=== PATIENT | female | born 1965 | race Caucasian/White ===

== ENCOUNTER 2024-12-24 04:56 | Observation (INO) ==
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
[2024-12-24] MEDS: KETOROLAC TROMETHAMINE 60 MG/2 ML VIAL IM STA (05:51)
[2024-12-24] MEDS: ACETAMINOPHEN 500 MG TAB PO STA (05:51)
[2024-12-24] MEDS: dexAMETHasone**PF** 10 MG/ML VIAL IM ONE (05:51)
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
--- OUTSIDE RECORDS SUMMARY | 2024-12-24 06:01 | External Medical Summary | Summary of Care ---
Author Name Unknown Organization [facility] Address [address] [place] [address] Phone [phone] Care Team Providers Care Chop Saw Operator Name Role Phone Atif Lubin MD Primary Care Provider [phone] Reason for Visit * Reason Comments Outpatient Testing Encounter Details Date Type Department Care Team (Late st Contact Info) Description 08/11/2024 8:50 AM EDT Laboratory Laboratory, [facility] [address] [place] [address] [facility] [address] [place] [address] HTN, goal below 130/80; Hypertension, unspecified type Allergies Active Allergy Reactions Criticality Noted Date Comments Adhesive Tape Other (Please comment) Medium 04/25/2014 "looks like a chemical burn when on my torso" documented as of this encounter (statuses as of 08/11/2024) Medications Medication Sig Dispensed Refills Start Date End Date Status Losartan Potassium 50 MG Oral Tablet (Cozaar)Indications :HTN, goal below 130/80 Take 1 Tablet by mouth in the morning. 90 Tablet 3 03/10/2024 Active Synthroid 100 MCG Oral Tablet TAKE 1 TABLET DAILY, AT LEAST 30 MINUTES PRIOR TO BREAKFAST OR OTHER MEDICATIONS 90 Tablet 3 03/10/2024 Active documented as of this encounter (statuses as of 08/11/2024) Active Problems Problem Noted Date Diagnosed Date HTN, goal below 130/80 03/10/2024 Symptomatic PVCs 08/06/2023 Obesity, Class I, BMI 30.0-34.9 (see actual BMI) 08/06/2023 Lumbar degenerative disc disease 08/05/2023 S/P complete thyroidectomy 08/05/2023 Postsurgical hypothyroidism 05/21/2015 Overview: Mass wrapped around vocal cord documented as of this encounter (statuses as of 08/11/2024) Resolved Problems Problem Noted Date Diagnosed Date Resolved Date Palpitations 03/10/2024 08/11/2024 Long QT interval 08/05/2023 08/06/2023 Lumbar herniated disc 07/23/20222022 Lateral epicondylitis of right elbow 07/23/2022 08/05/2023 Acute left-sided low back pa in with left-sided sciatica 2022 08/05/2023 Left leg weakness 2022 08/05/2023 History of 2019 novel hayes virus disease (COVID-19) 11/07/2021 01/10/2022 Overview: 11/25 s/p vaccines. Laceration of right knee 05/01/202112/2022 Supraclavicular lymphadenopathy 12/14/2019 08/05/2023 Abnormal mammogram 10/26/2015 8 Hypothyroidism 10/19/2014 08/22/2015 Thyroid nodule 07/06/2014 04/14/2019 Overview: 03/18-referred ENT for surg. 06/1777-WIQ-bypow benign -borderline #cells--referred endo. Tim 6mos There [...] disc herniation 06/09/201408/2018 Neuralgia and neuritis 06/09/201408/05 Overview: 05/17 611 MRI Tension headache 10/15/2013 08/06/2023 Abnormal mammogram 09/15/2013 6 Neck muscle spasm 07/24/2012 11/13/2017 Pain in right elbow 07/24/2012 11/13/19 18 Routine medical exam 07/30/2011 024 Overview: 06/22 cologuard WNL tim 3y 05/[address] Condon. 10/17 spot mammo WNL. Tim 1y 10/16 mammo normal tim 1 year, referred pap 2010--mammo WNL per pt. 2009 pap-WNL Allergic rhinitis 08/11/2024 documented as of this encounter (statuses as of 08/11/2024) Immunizations Name Administration Dates Next Due COVID-19 mRNA, LNP-s, No Pre serve, 2-Dose Series ([employer]) 10/07/2021,01/23/2021,12/28/2020 Seasonal Influenza Vac., MDV , IM, [...] money to get more. Never true 12/31/2022 Sex and Gender Information Value Date Recorded Sex Assigned at Female 07/15/2022 7:14 PM EDT Gender Identity Female 07/15/2022 7:14 PM EDT Sexual Orientation Straight 07/15/2022 7: 14 PM EDT Job Start Date Occupation Industry Not on file Not on file Not on file documented as of this encounter Functional Status Functional Status Response Date of Assess ment Are you deaf or do you have serious difficulty h earing? No 05/19/2015 Are you blind or do you have serious difficulty seeing, even when wearing glasses? No 05/19/2015 Do you have serious difficul ty walking or climbing stairs? (5 years old or older) No 05/19/2015 Do you have difficulty dress ing or bathing? (5 years old or older) No 05/19/2015 Because of a physical, menta l, or emotional condition, do you have difficulty doing errands alone such as visiting a doctor s office or shopping? (15 years old or older) No 05/19/20 15 Cognitive Status Response Date of Assessm ent Because of a physical, menta l, or emotional condition, do you have serious difficulty concentrating, remembering, or making decisions? (5 years old or older) No 05/19/2015 documented as of this encounter Plan of Treatment Upcoming Encounters Date Type Department Care Team (Late st Contact Info) Description 01/22/2025 2:15 PM EDT Office Visit Dermatology [facility] [address] [place] [address] Rk Canada MD [address] [place] [address] 08/13/2025 7:40 AM EDT Office Visit Family Practice [facility] [address] [facility] [place] [address] Atif Lubin MD [address] [place] [address] Pending Results Name Type Priority Associated Diagnoses Date /Time COMPREHENSIVE METABOLIC PANEL Lab Routine HTN, goal below 130/80 08/11/2024 8:30 AM EDT LIPID PANEL WITH DIRECT LDL IF TG IS HIGH Lab Routine HTN, goal below 130/80 08/11/2024 8:30 AM EDT TSH WITH FREE T4 IF INDICATED Lab Routine HTN, goal below 130/80 08/11/2024 8:30 AM EDT ALBUMIN / CREATININE RATIO, URINE Lab Routine Hypertension, unspecified type 08/11/2024 9:19 AM EDT Health Maintenance Due Date Last Done Comments HIV Screening 1981 Albumin/Creatinine Ratio 1984 Hepatitis C Screening 1984 Hepatitis B Vaccine (1 of 3 - 19+ 3-dose series) 1985 HPV/Co-Test 1996 Colonoscopy 2011 Fecal Occult Blood Test 2011 Sigmoidoscopy 2011 Depression Screening 07/23/2023 07/23/2022 DTap/Tdap Vaccines (2 - Td or Tdap) 08/19/2023 08/19/2013 COVID-19 Vaccine ( season) 2024 10/07/2021, 01/23/2021, 12/28/2020 Influenza Vaccine (FLU shot) (#1) 2024 07/23/2022, 07/16/2020, 11/06/2019, Additional history exists TSH 08/07/2024 08/07/2023, 07/05, 01/16/2021, Additional history exists GFR 11/08/2024 11/08/2023, 10/04, 07/23/2022, Additional history exists Cervical Cancer Screening 12/29/2024 Pap Smear 12/29/2024 12/29/2021, 11/04, 10/18/2016, Additional history exists Mammogram 03/20/2025 03/20/2024, 03/04, 01/16/2022, Additional history exists Cologuard 07/26/2025 07/26/2022, 07/05, 07/20/2022, Additional history exists Colorectal Cancer Screening 07/26/2025 Diabetes Screening 11/08/2026 11/08/2023, 1 12/18/2021, 07/23/2022, Additional history exists Lipid Panel 07/23/2027 07/23/2022, 10/03/2018, 07/24/2012 Zoster Vaccines Completed 11/06/2019, 04/14/2019 HPV (Gardasil) [...] Not on filedocumented as of this encounter Procedures Procedure Name Priority Date/Time Associated Diagnosis Comments CBC Routine 08/11/2024 8:30 AM EDT HTN, goal below 130/80 documented in this encounter Results * CBC (08/11/2024 8:30 AM EDT) WBC 6.07 4.00 - 10.80 K/uL 08/11/2024 8:48 AM EDT [facility] [place] [facility]10 RBC 4.69 3.85 - 5.15 M/uL 08/11/2024 8:48 AM EDT [facility] [place] 57-10 HGB 13.4 12.0 - 15.3 g/dL 08/11/2024 8:48 AM EDT [facility] [place] 57-10 HCT 41.5 36.0 - 45.2 % 08/11/2024 8:48 AM EDT [facility] [place] 57-10 MCV 88.5 81.5 - 97.5 fL 08/11/2024 8:48 AM EDT [facility] [place] 57-10 MCH 28.6 27.0 - 34.0 pg 08/11/2024 8:48 AM EDT [facility] [place] 57-10 MCHC 32.3 32.0 - 36.0 g/dL 08/11/2024 8:48 AM EDT [facility] [place] 57[facility]10 RDW 13.1 11.5 - 15.5 % 08/11/2024 8:48 AM EDT [facility] [place] 57-10 PLT 309 140 - 400 K/uL 08/11/2024 8:48 AM EDT [facility] [place] 57-10 MPV 10.3 6.6 - 11.1 fL 08/11/2024 8:48 AM EDT [facility] [place] 57-10 Blood Venous blood specimen / Unknown Venipuncture / Unknown 08/11/2024 8:30 AM EDT 08/11/2024 8:30 AM EDT Kala [facility]ALVE[facility] LAB BLOOD ORDER [facility] [place] [facility]-10 [address] [address] documented in this encounter Visit Diagnoses Diagnosis Hypertension, unspecified type documented in this encounter Care Teams Chop Saw Operator Relationship Specialty Start Date End Date Atif Lubin MD [address] [address] PCP - General Family Medicine 08/06/23 documented as of this encounter
--- OUTSIDE RECORDS SUMMARY | 2024-12-24 06:01 | External Medical Summary | Summary of Care ---
Author Name Unknown Organization [facility] Address [address] [place] [address] Phone [phone] Care Team Providers Care Lone Lead Lineman Name Role Phone Atif Lubin MD Primary Care Provider [phone] Reason for Visit * Reason Onset Date Comments Test Results 08/14/2024 Encounter Details Date Type Department Care Team (Late st Contact Info) Description 08/14/2024 Telephone Cardiology, [facility] [address] [place] [address] Jean Claude Younger DO [address] [place] [address] Test Results Allergies Active Allergy Reactions Criticality Noted Date Comments Adhesive Tape Other (Please comment) Medium 04/25/2014 "looks like a chemical burn when on my torso" documented as of this encounter (statuses as of 08/14/2024) Medications Medication Sig Dispensed Refills Start Date [...] as of this encounter (statuses as of 08/14/2024) Active Problems Problem Noted Date Diagnosed Date HTN, goal below 130/80 03/10/2024 Symptomatic PVCs 08/06/2023 Obesity, Class I, BMI 30.0-34.9 (see actual BMI) 08/06/2023 Lumbar degenerative disc disease 08/05/2023 S/P complete thyroidectomy 08/05/2023 Postsurgical hypothyroidism 05/21/2015 Overview: Mass wrapped around vocal cord documented as of this encounter (statuses as of 08/14/2024) Resolved Problems Problem Noted Date Diagnosed Date [...] 07/06/2014 04/14/2019 Overview: 03/18-referred ENT for surg. 06/1724-LTA-tktox benign -borderline #cells--referred endo. Tim 6mos There [...] as of this encounter (statuses as of 08/14/2024) Immunizations Name Administration Dates Next Due COVID-19 mRNA, LNP-s, No Pre serve, 2-Dose Series ([employer]) 10/07/2021,01/23/2021,12/28/2020 Seasonal Influenza Vac., MDV , IM, [...] No 05/19/2015 documented as of this encounter Miscellaneous Notes * Telephone Encounter - Ochoa Bravo LPN - 08/14/2024 3:30 PM EDT Sent patient a [employer] message to make aware. ----- Message from Jean Claude Younger DO sent at 08/14/2024 3:29 PM EDT ----- Elevated TSH with normal free T4. Will forward results to primary care for management of hypothyroidism. Elevated LDL. Recommend dietary improvements and participation in a regular aerobic exercise program. Normal CBC and CMP. documented in this encounter Plan of Treatment Upcoming Encounters Date Type Department Care Team (Late st Contact Info) Description 01/22/2025 2:15 PM EDT Office Visit Dermatology [facility] [address] [facility] [place] [address] Rk [place] MD [address] [facility] [place] [address] 08/13/2025 7:40 AM EDT Office Visit Family Practice [facility] [address] [place] [address] Atif Lubin MD [address] [place] [address] Health Maintenance Due Date Last Done Comments [...] Not on filedocumented as of this encounter Care Teams Lone Lead Lineman Relationship Specialty Start Date End Date Atif Lubin MD [address] [address] [address] PCP - General Family Medicine 08/06/23 documented as of this encounter
--- OUTSIDE RECORDS SUMMARY | 2024-12-24 06:02 | External Medical Summary | Summary of Care ---
Author Name Unknown Organization [facility] Address [address] [place] [address] Phone [phone] Care Team Providers Care Crib Clerk Name Role Phone Atif Lubin MD Primary Care Provider [phone] [phone] Reason for Visit * Reason Comments Acute Pt had postive covid test 07/25, tested negative on Wednesday 08/01.9 days has had earache/pain. Stated hearing is distorted. Sinus congestion and cough. No fever, no body aches/chills/fatigue. Encounter Details Date Type Department Care Team (Late st Contact Info) Description 08/03/2024 5:40 PM EDT Office Visit Family Practice [facility] [address] [place] [address] Reena Armendariz MD [address] [place] [address] Left acute otitis media* Allergies Active Allergy Reactions Criticality Noted Date Comments Adhesive Tape Other (Please comment) Medium 04/25/2014 "looks like a chemical burn when on my torso" documented as of this encounter (statuses as of 08/03/2024) Medications Medication Sig Dispensed Refills Start Date End Date Status Losartan Potassium 50 MG Oral Tablet (Cozaar)Indicati ons:HTN, goal below 130/80 Take 1 Tablet by mouth in the morning. 90 Tablet 3 4 Active Synthroid 100 MCG Oral Tablet TAKE 1 TABLET DAILY, AT LEAST 30 MINUTES PRIOR TO BREAKFAST OR OTHER MEDICATIONS 90 Tablet 3 4 Active Nirmatrelvir&Rit onavir 300/100 20 x 150 MG & 10 x 100MG Oral Tablet Therapy Pack (Paxlovid (300/100)) Take 2 pink tablets of Nirmatrelvir and 1 white tablet of Ritonavir two times a day by mouth. 30 Tablet 4 Active Additional Information Patient not taking.Reported on 08/03/2024 Amoxicillin-Pot Clavulanate 875-125 MG Oral Tablet (Augmentin)Indic ations:Left acute otitis media Take 1 Tablet by mouth in the morning and 1 Tablet before bedtime. Do all this for 7 days. 14 Tablet 4 08/10/20 24 Active Famotidine 10 MG Oral TabletIndication s:Gastroesophage al reflux disease without esophagitis Take 1 Tablet by mouth 2 times a day as needed. 08/03/20 24 Discontinued Verapamil HCl ER 120 MG Oral Tablet Extended Release (Isoptin SR)Indications:P alpitations,Symp tomatic PVCs,Prolonged QT interval,HTN, goal below 130/80 Take 1 Tablet by mouth in the morning. 30 Tablet 11 4 08/03/20 24 Discontinued(Med ication List Clean Up) LORazepam 0.5 MG Oral Tablet (Ativan)Indicati ons:Panic disorder Take 1 Tablet by mouth every 8 hours as needed for Anxiety. 12 Tablet 4 08/03/20 24 Discontinued(Med ication List Clean Up) documented as of this encounter (statuses as of 08/03/2024) Active Problems Problem Noted Date Diagnosed Date HTN, goal below 130/80 03/10/2024 Palpitations 03/10/2024 Symptomatic PVCs 08/06/2023 Obesity, Class I, BMI 30.0-34.9 (see actual BMI) 08/06/2023 Lumbar degenerative disc disease 08/05/2023 S/P complete thyroidectomy 08/05/2023 Postsurgical hypothyroidism 05/21/2015 Overview: Mass wrapped around vocal cord Routine medical exam 07/30/2011 Overview: 06/22 cologuard WNL tim 3y 05/[address] Condon. 10/17 spot mammo WNL. Tim 1y 10/16 mammo normal tim 1 year, referred pap 2010--mammo WNL per pt. 2009 pap-WNL Allergic rhinitis documented as of this encounter (statuses as of 08/03/2024) Resolved Problems Problem Noted Date Diagnosed Date Resolved Date Long QT interval 08/05/2023 08/06/2023 Lumbar herniated [...] 07/06/2014 04/14/2019 Overview: 03/18-referred ENT for surg. 06/1748-HJT-ofhbr benign -borderline #cells--referred endo. Tim 6mos There [...] 06/09/201408/2018 Neuralgia and neuritis 06/09/201408/05 Overview: 05/17 MRI Tension headache 10/15/2013 08/06/2023 Abnormal mammogram 09/15/2013 6 Neck muscle spasm 07/24/2012 11/13/2017 Pain in right elbow 07/24/2012 11/13/19 18 documented as of this encounter (statuses as of 08/03/2024) Immunizations Name Administration Dates Next Due COVID-19 mRNA, LNP-s, No Pre serve, 2-Dose Series ([employer]) 10/07/2021,01/23/2021,12/28/2020 Seasonal Influenza, PF, 6 M & above, IM , (FluLaval or Fluzone) 07/23/2022,07/16/2020,11/06/2019 Seasonal Influenza, Trivalen t, (IIV3), with Preserv, (Fluzone) 08/18/2014,07/30/2011 TDAP (age 10 and older)(Boostrix) 08/19/2013 Zoster [...] on file documented as of this encounter Last Filed Vital Signs Vital Sign Reading Time Taken Comments Blood Pressure 136/88 08/03/2024 5:41 PM EDT Pulse 60 08/03/2024 5:41 PM EDT Temperature 36.9 C (98.4 F) 08/03/2024 5:41 PM ED T Respiratory Rate - - Oxygen Saturation 99% 08/03/2024 5:41 PM EDT Inhaled Oxygen Concentration - - Weight 87.8 kg (193 lb 9.6 oz) 08/03/2024 5:41 P M EDT Height - - Body Mass Index 33.23 08/06/2023 5:18 PM EDT documented in this encounter Functional Status Functional Status Response [...] No 05/19/2015 documented as of this encounter Patient Instructions * Patient Instructions* Reena Armendariz MD - 08/03/2024 6:08 PM EDT There is clearly fluid in your middle ear on the left. It may be infected with bacteria, not 100% clear. Let's try to drain that fluid with a nasal steroid spray (e.g. flonase, nasonex, nasacort). They are over the counter. If not improving in 3-5 days, go ahead and start Augmentin. If you are having worsening ear pain, start the augmentin sooner. Wait 3-4 months before getting COVID vaccine. documented in this encounter Progress Notes * Reena Armendariz MD - 08/03/2024 5:56 PM EDT Images from the original note were not included. History of Present Illness Kinza Patterson is a 59 year old female that presents for Acute (Pt had postive covid test 07/25,tested negative on Wednesday 08/01./9 days has had earache/pain. Stated hearing is distorted. Sinus congestion and cough. No fever, no body aches/chills/fatigue. ) Sx started 07/24. Paxlovid Rx'd 07/27/24. Stopped after three days due to horrible taste and diarrhea. Left ear feels full of fluid, constant high-pitched tinnitus, intermittent pain. Still has occasional cough and nasal congestion. Fever has resolved. No shortness of breath or chest pain. Current medications and allergies reviewed. Past medical history and problem list reviewed. Physical Exam Vitals: 08/03/24 1741 Temp: 36.9 C (98.4 F) Pulse: 60 SpO2: 99% BP: 136/88 BP Readings from Last 3 Encounters: 08/03/24 136/88 03/10/24 140/82 11/08/23 126/72 Wt Readings from Last 3 Encounters: 08/03/24 87.8 kg (193 lb 9.6 oz) 03/10/24 84.8 kg (187 lb) 11/08/23 84.4 kg (186 lb) Physical Exam Vitals and nursing note reviewed. Constitutional: General: She is not in acute distress. Appearance: Normal appearance. She is not ill-appearing. HENT: Head: Normocephalic and atraumatic. Right Ear: Tympanic membrane, ear canal and external ear normal. There is no impacted cerumen. Left Ear: Ear canal and external ear normal. There is no impacted cerumen. Ears: Comments: Left TM: Moderate bulge, clear fluid. Dull light reflex. Moderate superior injection. Nose: Nose normal. Mouth/Throat: Mouth: Mucous membranes are moist. Pharynx: Oropharynx is clear. No oropharyngeal exudate. Comments: No peritonsillar abscess or cellulitis. Normal uvula. Tonsils without swelling, erythem or exudate. Eyes: General: No scleral icterus. Pupils: Pupils are equal, round, and reactive to light. Cardiovascular: Rate and Rhythm: Normal rate and regular rhythm. Heart sounds: No murmur heard. Pulmonary: Effort: Pulmonary effort is normal. Breath sounds: Normal breath sounds. Lymphadenopathy: Cervical: No cervical adenopathy. Neurological: Mental Status: She is alert. I have reviewed the following results: BMP Assessment and Plan Left acute otitis media Patient Instructions There is clearly fluid in your middle ear on the left. It may be infected with bacteria, not 100% clear. Let's try to drain that fluid with a nasal steroid spray (e.g. flonase, nasonex, nasacort). They are over the counter. If not improving in 3-5 days, go ahead and start Augmentin. If you are having worsening ear pain, start the augmentin sooner. Wait 3-4 months before getting COVID vaccine. - Amoxicillin-Pot Clavulanate 875-125 MG Oral Tablet (Augmentin); Take 1 Tablet by mouth in the morning and 1 Tablet before bedtime. Do all this for 7 days. Wrap-Up Time: I spent a total of 10-19 minutes (exact time 15 mins) on the date of service in preparation, delivery, and documentation of the care provided to Kinza Patterson excluding any time spent in the performance of separately billed services. documented in this encounter Nursing Notes * Roldan Castellon CMA - 08/03/2024 5:41 PM EDT The patient has been properly identified by confirmation of name and date of . Chief Complaint Patient presents with Acute Pt had postive covid test 07/25, tested negative on Wednesday 08/01. 9 days has had earache/pain. Stated hearing is distorted. Sinus congestion and cough. No fever, no body aches/chills/fatigue. documented in this encounter Plan of Treatment Upcoming Encounters Date Type Department Care Team (Late st Contact Info) Description 08/11/2024 7:40 AM EDT Office Visit [facility] [address] [place] [address] Atif Lubin MD [address] [place] [address] Health Maintenance Due Date Last Done Comments [...] Additional history exists Lipid Panel 07/23/2027 07/23/2022, 10/0 03/2018, 07/24/2012 Zoster Vaccines Completed 11/06/2019, 04/14/2019 HPV [...] as of this encounter Visit Diagnoses Diagnosis Left acute otitis media- Primary Unspecified otitis media documented in this encounter Care Teams Crib Clerk Relationship Specialty Start Date End Date Atif Lubin MD [address] [place] [address] PCP - General Family Medicine 08/06/23 documented as of this encounter
--- OUTSIDE RECORDS SUMMARY | 2024-12-24 06:02 | External Medical Summary ---
Author Name Unknown Address Unknown Organization [id number]:[facility] - [address] [place] [address] Laboratory Report Ordering Provider Test Date Status TONIMAO 08/11/2024 09:19:00 Final Normal: <30 mg/g creatinine< br/>High: 30-300 mg/g creatinine
Very High: >300 mg/g creatinine
Nephrotic: >2200 mg/g creatinine Observation Date Value Abnormality Reference (Units ) Status Albumin, Urine 08/11/2024 09:19:00 <1.20 (mg/dL) Final Creatinine, Urine 08/11/2024 09:19:00 179 (mg/dL) Final Albumin/Creatinine [Mass Ratio] in Urine 08/11/2024 09:19:00 <7 <30 (mg/g Creat) Final Performing Location [facility] - [address] [place] [address]
--- OUTSIDE RECORDS SUMMARY | 2024-12-24 06:02 | External Medical Summary | Summary of Care ---
Author Name Unknown Organization [facility] Address [address] [place] [address] Phone [phone] Care Team Providers Care Transportation Department Head Name Role Phone Atif Lubin MD Primary Care Provider [phone] Reason for Visit * Reason Comments Outpatient Testing Encounter Details Date Type Department Care Team (Late st Contact Info) Description 08/11/2024 8:50 AM EDT Laboratory Laboratory, [facility] [address] [place] [address] [facility] [address] [facility] [place] [id number] HTN, goal below 130/80 Allergies Active Allergy Reactions Criticality Noted Date [...] 07/06/2014 04/14/2019 Overview: 03/18-referred ENT for surg. 06/1766-TOZ-jzssi benign -borderline #cells--referred endo. Tim 6mos There [...] mRNA, LNP-s, No Pre serve, 2-Dose Series ([employer]) 10/07/2021,01/23/2021,12/28/2020 Seasonal Influenza Vac., MDV , IM, [...] 01/22/2025 2:15 PM EDT Office Visit [facility] [address] [place] [address] [address] Rk Canada MD [address] [place] [address] 08/13/2025 7:40 AM EDT Office Visit Family [facility] [address] [facility] [place] [address] Atif Lubin MD [address] [place] [address] Pending Results Name Type Priority Associated Diagnoses Date /Time CBC Lab Routine HTN, goal below 130/80 08/11/2024 8:30 AM EDT COMPREHENSIVE METABOLIC PANEL Lab Routine HTN, goal below 130/80 08/11/2024 8:30 AM EDT LIPID PANEL WITH DIRECT LDL IF TG IS HIGH Lab Routine HTN, goal below 130/80 08/11/2024 8:30 AM EDT TSH WITH FREE T4 IF INDICATED Lab Routine HTN, goal below 130/80 08/11/2024 8:30 AM EDT Health Maintenance Due Date Last [...] as of this encounter Visit Diagnoses Diagnosis HTN, goal below 130/80 Unspecified essential hypertension documented in this encounter Care Teams Transportation Department Head Relationship Specialty Start Date End Date Atif Lubin MD [address] [place] [address] PCP - General Family Medicine 08/06/23 documented as of this encounter
--- OUTSIDE RECORDS SUMMARY | 2024-12-24 06:02 | External Medical Summary | Summary of Care ---
Author Name Unknown Organization [facility] Address [address] [place] [address] Phone [phone] Care Team Providers Care Gear Room Keeper Name Role Phone Atif Lubin MD Primary Care Provider [phone] Reason for Visit * Reason Onset Date Comments Advice 07/27/2024 Encounter Details Date Type Department Care Team (Late st Contact Info) Description 07/27/2024 Telephone Family Practice [facility] [address] [place] [address] Atif Lubin MD [address] [place] [address] Advice Allergies Active Allergy Reactions Criticality Noted Date Comments Adhesive Tape Other (Please comment) Medium 04/25/2014 "looks like a chemical burn when on my torso" documented as of this encounter (statuses as of 07/27/2024) Medications Medication Sig Dispensed Refills Start Date End Date Status Famotidine 10 MG Oral TabletIndications:G astroesophageal reflux disease without esophagitis Take 1 Tablet by mouth 2 times a day as needed. Active Verapamil HCl ER 120 MG Oral Tablet Extended Release (Isoptin SR)Indications:Palp itations,Symptomati c PVCs,Prolonged QT interval,HTN, goal below 130/80 Take 1 Tablet by mouth in the morning. 30 Tablet 11 11/08/2023 Active LORazepam 0.5 MG Oral Tablet (Ativan)Indications :Panic disorder Take 1 Tablet by mouth every 8 hours as needed for Anxiety. 12 Tablet 12/11/2023 Active Additional Information Patient not taking.Reported on 03/10/2024 Losartan Potassium 50 MG Oral Tablet (Cozaar)Indications :HTN, goal below 130/80 Take 1 Tablet by mouth in the morning. 90 Tablet 3 03/10/2024 Active Synthroid 100 MCG Oral Tablet TAKE 1 TABLET DAILY, AT LEAST 30 MINUTES PRIOR TO BREAKFAST OR OTHER MEDICATIONS 90 Tablet 3 03/10/2024 Active Nirmatrelvir&Ritona vir 300/100 20 x 150 MG & 10 x 100MG Oral Tablet Therapy Pack (Paxlovid (300/100)) Take 2 pink tablets of Nirmatrelvir and 1 white tablet of Ritonavir two times a day by mouth. 30 Tablet 07/27/2024 Active documented as of this encounter (statuses as of 07/27/2024) Active Problems Problem Noted Date Diagnosed Date [...] WNL per pt. 2010 pap-WNL Allergic rhinitis documented as of this encounter (statuses as of 07/27/2024) Resolved Problems Problem Noted Date Diagnosed Date [...] 07/06/2014 04/14/2019 Overview: 03/18-referred ENT for surg. 06/1759-BBY-fissk benign -borderline #cells--referred endo. Tim 6mos There [...] as of this encounter (statuses as of 07/27/2024) Immunizations Name Administration Dates Next Due COVID-19 mRNA, LNP-s, No Pre serve, 2-Dose Series (Pfizer) 10/07/2021,01/23/2021,12/28/2020 Seasonal Influenza, PF, 6 M & [...] encounter Miscellaneous Notes * Telephone Encounter - Beata Jones LPN - 07/27/2024 3:56 PM EDT Patient aware and verbalized understanding * Telephone Encounter - Atif Lubin MD - 07/27/2024 8:43 AM EDT sent * Telephone Encounter - Beata Jones LPN - 07/27/2024 8:31 AM EDT Patient calling to request Paxlovid. Date of positive Covid test: 07/25/24 Symptoms started: 07/24 What symptoms are you experiencing? Headache, sore throat, left ear is clogged, body aches, chills.(fever, sore throat, shortness of breath, cough, wheezing, nasal drainage, congestion) Date of last fever: last night Did you have 2 vaccines: Yes Boosters: Yes What have you tried OTC: sudafed, tylenol, mucinex What pharmacy do you use: [facility] [place] * Telephone Encounter - Catrina Aguilar OSA - 07/27/2024 8:29 AM EDT Reason for patient's call: Requesting medication for covid Caller was transferred to Beata at the nurse line. documented in this encounter Plan of Treatment Upcoming Encounters Date Type Department Care Team (Late st Contact Info) Description 08/11/2024 7:40 AM EDT Office Visit Family Practice [facility] [address] [place] [address] Atif Lubin MD [address] [place] [address] Health Maintenance Due Date Last Done Comments HIV Screening 1981 Albumin/Creatinine Ratio 1984 Hepatitis C Screening 1984 Hepatitis B Vaccine (1 of 3 - 19+ 3-dose series) 1985 HPV/Co-Test 1996 Colonoscopy 2011 Fecal Occult Blood Test 2011 Sigmoidoscopy 2011 Depression Screening 07/23/2023 07/23/2022 DTap/Tdap Vaccines (2 - Td or Tdap) 08/19/2023 08/19/2013 COVID-19 Vaccine ( - season) 2024 10/07/2021, 01/23/2021, 12/28/2020 Influenza Vaccine [...] Additional history exists Lipid Panel 07/23/2027 07/23/2022, 03/2018, 07/24/2012 Zoster Vaccines Completed 11/06/2019, 04/14/2019 [...] filedocumented as of this encounter Care Teams Gear Room Keeper Relationship Specialty Start Date End Date Atif Lubin MD [address] [place] [address] PCP - General Family Medicine 08/06/23 documented as of this encounter
--- OUTSIDE RECORDS SUMMARY | 2024-12-24 06:02 | External Medical Summary ---
Author Name Unknown Address Unknown Organization [id number]:LABORATORY [facility] [place] - [address] [facility] [address] Laboratory Report Ordering Provider Test Date Status MAGAN MAXWELL 08/11/2024 08:30:39 Final Observation Date Value Abnormality Reference (Units ) Status TSH 08/11/2024 08:30:39 5.44 Above high normal 0. 27-4.20 (uIU/mL) Final Performing Location LABORATORY [facility] [place] - [address] [facility] [address]
--- OUTSIDE RECORDS SUMMARY | 2024-12-24 06:02 | External Medical Summary | Summary of Care ---
Author Name Unknown Organization [facility] Address [address] [place] [address] Phone [phone] Care Team Providers Care Scooter Mechanic Name Role Phone Atif Lubin MD Primary Care Provider [phone] Reason for Referral * Evaluate & Treat - Unlimited Visits (Within 10 days (routine)) - Authorized Specialty Diagnoses / Procedures Referred By Arlin campos Referred To Contact Dermatology Diagnoses Multiple nevi Atif Lubin MD [address] [place] [address] Referral ID Status Reason Start Date Expiration Date Visits Requested Visits Authorized [id number] Authorized Specialty Services Required 08/11/2024 999 999 Question Answer Referral Priority Within 10 days (routine) Where should this appointment be scheduled? [facility] Are you referring the patient for Mohs Surgery and have a current positive skin cancer biopsy result? No What is the reason for the patient referral? Rash/Skin Check/Eval of Lesion or Mole Reason for Visit * Reason Comments Physical-Exam Pt here for cpe, sta gianni she has a lot of aches and pain, states she is having R shoulder pain and decreased ROM. Pt states she is just getting over covid and has continued L ear problem Encounter Details Date Type Department Care Team (Latest Contact Info) Description 08/11/2024 7:40 AM EDT Office Visit Family [facility] [address] [place] [address] Atif Lubin MD [address] [place] [address] Routine general medical examination at a health care facility*; Multiple nevi; HTN, goal below 130/80; Symptomatic PVCs; Postsurgical hypothyroidism; Degeneration of intervertebral disc of lumbar region with discogenic back pain; S/P complete thyroidectomy; Obesity, Class I, BMI 30.0-34.9 (see actual BMI) Allergies Active Allergy Reactions Criticality Noted Date [...] OTHER MEDICATIONS 90 Tablet 3 03/10/2024 Active Nirmatrelvir&Rit onavir 300/100 20 x 150 MG & 10 x 100MG Oral Tablet Therapy Pack (Paxlovid (300/100)) Take 2 pink tablets of Nirmatrelvir and 1 white tablet of Ritonavir two times a day by mouth. 30 Tablet 07/27/2024 4 Discontinued Amoxicillin-Pot Clavulanate 875-125 MG Oral Tablet (Augmentin)Indic ations:Left acute otitis media Take 1 Tablet by mouth in the morning and 1 Tablet before bedtime. Do all this for 7 days. 14 Tablet 08/03/2024 4 Discontinued documented as of this encounter (statuses as [...] 07/06/2014 04/14/2019 Overview: 03/18-referred ENT for surg. 06/1715-XFS-fhejf benign -borderline #cells--referred endo. Tim 6mos There [...] mRNA, LNP-s, No Pre serve, 2-Dose Series (Alai) 10/07/2021,01/23/2021,12/28/2020 Seasonal Influenza Vac., MDV , IM, [...] Sign Reading Time Taken Comments Blood Pressure 130/82 08/11/2024 7:55 AM EDT Pulse 64 08/11/2024 7:55 AM EDT Temperature 36.6 C (97.8 F) 08/11/2024 7:55 AM ED T Respiratory Rate 18 08/11/2024 7:55 AM EDT Oxygen Saturation - - Inhaled Oxygen Concentration - - Weight 86.6 kg (191 lb) 08/11/2024 7:55 AM EDT Height 162.6 cm (5' 4") 08/11/2024 7:55 AM EDT Body Mass Index 32.79 08/11/2024 7:55 AM EDT documented in this encounter Functional Status [...] No 05/19/2015 documented as of this encounter Progress Notes * Atif Lubin MD - 08/11/2024 8:02 AM EDT SUBJECTIVE: Kinza Patterson is a 59 year old female. Chief Complaint Patient presents with Physical-Exam Pt here for cpe, states she has a lot of aches and pain, states she is having R shoulder pain and decreased ROM. Pt states she is just getting over covid and has continued L ear problem HPI: Here for yearly visit. Palpitations have improved. She recently had covid and is now on antibioticsfor an ear infection. She is dealing with calcific tendinitis of the right shoulder. Follows with ortho. Had tenex procedure on left shoulder in the past which really helped. Patient Active Problem List Diagnosis Postsurgical hypothyroidism Lumbar degenerative disc disease S/P complete thyroidectomy Symptomatic PVCs Obesity, Class I, BMI 30.0-34.9 (see actual BMI) HTN, goal below 130/80 Current Outpatient Medications Medication Sig Dispense Refill Losartan Potassium 50 MG Oral Tablet (Cozaar) Take 1 Tablet by mouth in the morning. 90 Tablet 3 Synthroid 100 MCG Oral Tablet TAKE 1 TABLET DAILY, AT LEAST 30 MINUTES PRIOR TO BREAKFAST OR OTHER MEDICATIONS 90 Tablet 3 No current facility-administered medications for this visit. Allergy: Review of patient's allergies indicates: Allergen Reactions Adhesive Tape Other (Please comment) "looks like a chemical burn when on my torso" OBJECTIVE: BP 130/82 | Pulse 64 | Temp 36.6 C (97.8 F) (Tympanic) | Resp 18 | Ht 1.626 m (5' 4") | Wt 86.6kg (191 lb) | BMI 32.79 kg/m | BSA 1.98 m General: alert, healthy, and no distress Head: Normocephalic, No masses, lesions, tenderness or abnormalities Neck: supple, no adenopathy, no bruits, thyroid normal size, non-tender, without nodularity Lungs: chest symmetric with normal AP diameter, no chest deformities noted, no chest wall tenderness, lungs clear to auscultation Heart: regular rate & rhythm, no murmur, and no gallops Extremities: less than 2 second capillary refill, no joint deformities, effusion, or inflammation ASSESSMENT AND PLAN: (Z00.00) Routine general medical examination at a health care facility (primary encounter diagnosis) Plan: age appropriate anticipatory guidance and health maintenance discussed (D22.9) Multiple nevi Plan: DERMATOLOGY REFERRAL OP (I10) HTN, goal below 130/80 Plan: stable on losartan (I49.3) Symptomatic PVCs Plan: quiescent (E89.0) Postsurgical hypothyroidism Plan: euthyroid (M51.360) Degeneration of intervertebral disc of lumbar region with discogenic back pain Plan: quiescent (E89.0) S/P complete thyroidectomy Plan: noted (E66.811) Obesity, Class I, BMI 30.0-34.9 (see actual BMI) Plan: diet/exercise Follow up in 1 year(s). No other complaints were offered at this time. Atif Lubin MD documented in this encounter Nursing Notes * Rosalinda Guillory LPN - 08/11/2024 7:55 AM EDT The patient has been properly identified by confirmation of name and date of . Chief Complaint Patient presents with Physical-Exam Pt here for cpe, states she has a lot of aches and pain, states she is having R shoulder pain and decreased ROM. Pt states she is just getting over covid and has continued L ear problem documented in this encounter Plan of Treatment Upcoming Encounters Date Type Department Care Team (Late st Contact Info) Description 08/11/2024 8:50 AM EDT [facility] [address] [phone] [facility] [address] [facility] [place] [address] HTN, goal below 130/80 01/22/2025 2:15 PM EDT Office Visit Dermatology [facility] [place] [address] [place] [address] Rk [place] MD [address] [place] [id number] 08/13/2025 7:40 AM EDT Office Visit Family Practice [facility] [address] [place] [address] Atif Lubin MD [address] [place] [address] Scheduled Referrals Name Type Priority Associated Diagnoses Orde r Schedule DERMATOLOGY REFERRAL OP Referral Within 10 days (routine) Multiple nevi Ordered: 08/11/2024 Health Maintenance Due Date Last Done Comments [...] Additional history exists Lipid Panel 07/23/2027 07/23/2022, 100 03/2018, 07/24/2012 Zoster Vaccines Completed 11/06/2019, 04/14/2019 [...] as of this encounter Visit Diagnoses Diagnosis Routine general medical examination at a health care facility- Primary Multiple nevi Benign neoplasm of skin, site unspecified HTN, goal below 130/80 Unspecified essential hypertension Symptomatic PVCs Other premature beats Postsurgical hypothyroidism Degeneration of intervertebral disc of lumbar region with discogenic back pain S/P complete thyroidectomy Other postprocedural status Obesity, Class I, BMI 30.0-34.9 (see actual BMI) Obesity, unspecified HTN, goal below 130/80 Unspecified essential hypertension documented in this encounter Care Teams Scooter Mechanic Relationship Specialty Start Date End Date Atif Lubin MD [address] [facility] [place] [address] PCP - General Family Medicine 08/06/23 documented as of this encounter
--- OUTSIDE RECORDS SUMMARY | 2024-12-24 06:02 | External Medical Summary ---
Author Name Unknown Address Unknown Organization [id number][facility] [address] [place] [address] Laboratory Report Ordering Provider Test Date Status MAGAN MAXWELL 08/11/2024 08:30:39 Final Observation Date Value Abnormality Reference (Units ) Status WBC, Total 08/11/2024 08:30:39 6.07 4.00-10.8 0 (K/uL) Final RBC 08/11/2024 08:30:39 4.69 3.85-5.15 (M/uL) Final Hemoglobin 08/11/2024 08:30:39 13.4 12.0-15.3 (g/dL) Final HCT 08/11/2024 08:30:39 41.5 36.0-45.2 (%) Final MCV 08/11/2024 08:30:39 88.5 81.5-97.5 (fL) Final MCH 08/11/2024 08:30:39 28.6 27.0-34.0 (pg) Final MCHC 08/11/2024 08:30:39 32.3 32.0-36.0 (g/dL) Final RDW 08/11/2024 08:30:39 13.1 11.5-15.5 (%) Final Platelets 08/11/2024 08:30:39 309 140-400 (K /uL) Final MPV 08/11/2024 08:30:39 10.3 6.6-11.1 ( fL) Final Performing Location LABORATORY [place] [facility] - [address] [place] [address]
--- OUTSIDE RECORDS SUMMARY | 2024-12-24 06:02 | External Medical Summary ---
Author Name Unknown Address Unknown Organization K01:LABORATORY [facility] - [address] [facility] [address] Laboratory Report Ordering Provider Test Date Status MAGAN MAXWELL 08/11/2024 08:30:39 Final Observation Date Value Abnormality Reference (Units ) Status T4, Free 08/11/2024 08:30:39 1.5 0.9-1.7 (n g/dL) Final Performing Location [facility]ATORY [facility] - [address] [facility] [address]
--- OUTSIDE RECORDS SUMMARY | 2024-12-24 06:02 | External Medical Summary ---
Author Name Unknown Address Unknown Organization K0G:[facility] - [address] [place] [address] Laboratory Report Ordering Provider Test Date Status MAGAN MAXWELL 08/11/2024 08:30:39 Final Observation Date Value Abnormality Reference (Units ) Status BUN 08/11/2024 08:30:39 15 6-20 (mg/dL) Final Creatinine 08/11/2024 08:30:39 0.9 0.5-1.0 (mg/dL) Final Glomerular filtration rate/1.73 sq M.predicted [Volume Rate/Area] in Serum, Plasma or Blood by Creatinine-based formula (CKD-EPI) 08/11/2024 08:30:39 78 >=60 (mL/min) Final eGFR is calculated based on the CKD-EPI 2020 equation. Sodium 08/11/2024 08:30:39 142 135-146 (m mol/L) Final Potassium 08/11/2024 08:30:39 4.3 3.5-5.1 (m mol/L) Final Cl 08/11/2024 08:30:39 104 98-107 (mm ol/L) Final CO2 08/11/2024 08:30:39 26 22-32 (mmo l/L) Final Anion gap 08/11/2024 08:30:39 12 7-15 (mmol /L) Final Glucose 08/11/2024 08:30:39 88 70-120 (mg /dL) Final Albumin 08/11/2024 08:30:39 4.3 3.8-5.0 (g /dL) Final AST (Aspartate aminotransferase) 08/11/2024 08:30:39 25 10-35 (U/L) Final Alk Phos 08/11/2024 08:30:39 100 35-130 (U/ L) Final Bilirubin, Total 08/11/2024 08:30:39 0.6 <=1 .2 (mg/dL) Final Calcium 08/11/2024 08:30:39 8.6 8.4-10.2 ( mg/dL) Final Protein 08/11/2024 08:30:39 6.9 6.0-8.3 (g /dL) Final ALT (Alanine aminotransferase) 08/11/2024 08:30:39 23 10-35 (U/L) Final [facility] [address] [place] [address]
--- OUTSIDE RECORDS SUMMARY | 2024-12-24 06:02 | External Medical Summary ---
Author Name Unknown Address Unknown Organization K01:[facility] [place] [address] [facility] [address] Laboratory Report Ordering Provider Test Date Status STALIN MAXWELLISO 08/11/2024 08:30:39 Final Observation Date Value Abnormality Reference (Units ) Status Triglyceride 08/11/2024 08:30:39 86 <=174 ( mg/dL) Final Triglyceride Reference Range s (mg/dL):
<150 Acceptable
150-174 Borderline high
175-499 High
>=500 Very high Cholesterol 08/11/2024 08:30:39 210 Above high normal <200 (mg/dL) Final Total Cholesterol Reference Ranges (mg/dL):
<200 Desirable
200-239 Borderline high
>=240 High HDL 08/11/2024 08:30:39 61 >49 (mg/dL ) Final HDL Cholesterol Reference Ra nges (mg/dL):
>=60 High (Desirable)
<50 Low (Undesirable) For Females
<40 Low (Undesirable) For Males NON-HDL CHOLESTEROL 08/11/2024 08:30:39 149 <=159 (mg/dL) Final Non-HDL Cholesterol Referenc e Range (mg/dL):
<100 Target level for high risk ASCVD patient
<130 Optimal for general population
130-159 Near optimal for general population
160-189 Borderline High
190-219 High
>=220 Very High LDL, (calculated) 08/11/2024 08:30:39 132 Above high n ormal <=129 (mg/dL) Final LDL Cholesterol Reference Ra nges (mg/dL):
<70 Target level for high risk ASCVD patient
<100 Optimal for general population
100-129 Near optimal for general population
130-159 Borderline high
160-189 High
>=190 Very high Performing Location [facility] [place] [address] [facility] [address]
[2024-12-24] MEDS: LIDOCAINE 5% 1 PATCH TD STA (06:15)
[2024-12-24] MEDS: METHOCARBAMOL 500 MG TABLET PO STA (06:15)
--- NOTE | 2024-12-24 07:23 | XRay Report ---
EXAM: XR lumbar spine min 4V routine CLINICAL HISTORY: pain TECHNIQUE: Radiograph of lumber spine was acquired. COMPARISON: No FINDINGS: Unilateral beheaded martiniquais dog sign seen at L5-S1 with no anterolisthesis at present scan. Vertebral bodies are normal in height. No acute fracture. Alignment is maintained. Intervertebral disc spaces are preserved. No lytic or blastic lesions identified. Bony spinal canal is maintained. The soft tissues are grossly unremarkable. IMPRESSION: 1. Unilateral beheaded martiniquais dog sign seen at L5-S1, suggestive of unilateral pars interarticularis defect. 2. No anterolisthesis at present scan. Electronically signed by Jonathan Walker 12-24-2024 07:22 AM
--- NOTE | 2024-12-24 07:26 | XRay Report ---
EXAM: XR thoracic spine 3V routine CLINICAL HISTORY: pain TECHNIQUE: Radiograph of thoracic spine was acquired. COMPARISON: No FINDINGS: Thoracic vertebral bodies are normal in height and alignment. Intervertebral disc spaces are normal. No evidence of listhesis. No abnormal pre and paravertebral soft tissue shadow seen. Visualized lung hi are clear. IMPRESSION: 1. Unremarkable study. Electronically signed by Jonathan Walker 12-24-2024 07:25 AM
[2024-12-24] MEDS: oxyCODONE HCL IR 5 MG TAB (IMMEDIATE RELEASE) PO STA (07:49)
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
[2024-12-24 08:46] LABS: Basophils # (auto) 0.03 K/uL (0.00-0.20); Basophils % (auto) 0.5 %; Eosinophils # (auto) 0.06 K/uL (0.00-0.50); Hematocrit (blood only) 43.7 % (37.0-47.0); Hemoglobin 14.9 g/dl (12.0-16.0); Immature Granulocytes # (auto) 0.05 K/uL (0.01-0.20); Immature Granulocytes % (auto) 0.8 %; Lymphocytes # (auto) 0.81 K/uL (1.20-3.40); Lymphocytes % (auto) 13.2 %; Mean Corpuscular Hemoglobin 28.7 pg (25.0-34.0); Mean Corpuscular Hgb Conc 34.1 g/dL (32.0-36.0); Mean Platelet Volume 10.2 fL (9.4-12.4); Monocytes # (auto) 0.12 K/uL (0.11-0.59); Neutrophils # (auto) 5.05 K/uL (1.40-6.50); Neutrophils % (auto) 82.5 %; Platelet Count 278 K/uL (130-400); RDW Coefficient of Variation 12.5 % (11.5-14.5); RDW Standard Deviation 38.2 fL (36.4-46.3); White Blood Count 6.12 K/ul (4.8-10.8)
--- NOTE | 2024-12-24 09:01 | CT Scan Report ---
CT OF THE THORACIC SPINE CLINICAL HISTORY: Back pain. COMPARISON STUDY: Thoracic spine radiographs performed earlier today. TECHNIQUE: Helical axial images of the thoracic spine were obtained. Sagittal and coronal reconstru ctions were viewed. Automated exposure control was utilized for the study. A dose lowering techniqu e was utilized adhering to the principles of ALARA. FINDINGS: Alignment of the thoracic spine is anatomic. Vertebral body heights are maintained. There a re no thoracic spine fractures. No osseous lesions are present. There is minimal disc space narrowing and osteophytosis within several levels of the thoracic spine. There is minimal facet arthrosis. Al though suboptimally assessed by CT, there is no evidence for severe central canal and neural foramina l stenosis. IMPRESSION: 1. No acute thoracic spine fracture or subluxation. 2. Minimal degenerative changes within the thoracic spine. ACT 112: Negative or not required by law. Electronically signed by: Bruno Bee M.D. 12/24/2024 9:00 AM
[2024-12-24 09:07] LABS: Alanine Aminotransferase 18 U/L (7-52); Albumin Globulin Ratio 1.5 (0.9-2); Albumin Level 4.4 gm/dl (3.4-5.0); Alkaline Phosphatase 94 U/L (34-104); Anion Gap 8 (3-11); Aspartate Aminotransferase 19 U/L (13-39); BUN Creatinine Ratio 13.8 (10-20); Bilirubin,Total 0.9 mg/dl (0.2-1.0); Blood Urea Nitrogen 9 mg/dl (6-23); Calcium 8.7 mg/dl (8.6-10.3); Carbon Dioxide 29 mmol/L (21-32); Chloride 104 mmol/L (98-107); Glucose 113 mg/dl (70-99(Fasting)); Magnesium 2.3 mg/dl (1.7-2.4); Potassium 3.9 mmol/L (3.5-5.1); Sodium 141 mmol/L (136-145); Total Protein 7.4 gm/dl (6.0-8.3)
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
--- NOTE | 2024-12-24 09:15 | CT Scan Report ---
CT lumbar spine wo con CLINICAL HISTORY: pain COMPARISON STUDY: Radiographs same date TECHNIQUE: Helical axial CT of the lumbar spine was performed without intravenous contrast enhancemen t. Sagittal and coronal reconstructions were done. Total exam DLP 2232.83mGy*cm FINDINGS: There is no evidence of acute fracture or manic malalignment. There is no L5 pars defect id entified. T12-L1 level demonstrate degenerative disc disease with slight endplate irregularity and small Schmor l's nodes. There is no significant neural compromise. L1-L2 level demonstrates small Schmorl's nodes and no additional abnormalities. L2-L3 level demonstrates a mild annulus bulge with no significant neural compromise. L3-L4 level demonstrates a mild annulus bulge and mild facet arthropathy. There is no significant jodi ral compromise. L4-L5 level demonstrates a pronounced annulus bulge with slight right sided prominence. The central c anal is at the lower limit of normal as a result of the disc protrusion. There is bilateral lateral r ecess and foraminal stenosis mild on the left and [id number] on the right. Mild hypertrophic fa cet arthropathy is present. L5-S1 level demonstrates a small central subligamentous disc protrusion that touches but does not dis place the S1 nerve roots as they enter the lateral recesses. Moderate facet arthrosis is present at L 5-S1. IMPRESSION: No evidence of acute fracture or traumatic malalignment. Disc protrusions at L4-5 and L5 -S1 as described in the body of the report. ACT 112: Negative or not required by law. Electronically signed by: Esther Hicks M.D. 12/24/2024 9:14 AM
[2024-12-24] MEDS: LOSARTAN POTASSIUM 50 MG TAB PO STA (10:15)
[2024-12-24] MEDS ORDERED: MoRPHine SULFATE 2 MG/ML CARP IV PRN (11:16)
[2024-12-24] MEDS ORDERED: POLYETHYLENE (MIRALAX) 17 GM PACK PO PRN (11:16)
[2024-12-24] MEDS ORDERED: MAGNESIUM HYDROXIDE SUSP 30 ML UDC PO PRN (11:16)
[2024-12-24] MEDS ORDERED: PROMETHAZINE 6.25 MG/50.25 ML BAG IV PRN (11:16)
[2024-12-24] MEDS: DOCUSATE SODIUM 100 MG CAP PO SCH (12:28)
[2024-12-24] MEDS: DICLOFENAC SOD 1% GEL 100 GM TUBE EXT SCH (12:28)
[2024-12-24] MEDS: BACLOFEN 10 MG TAB PO PRN (12:28)
[2024-12-24] MEDS: KETOROLAC TROMETHAMINE 15 MG/ML VIAL IV PRN (12:28)
[2024-12-24] MEDS: oxyCODONE/ACETAMINOPHEN 5mg/325mg TAB PO PRN (15:51)
[2024-12-24 19:29] VITALS: PULSE 69; TEMP 97.7
[2024-12-24] MEDS: ACETAMINOPHEN 325 MG TAB PO PRN (20:50)
--- NOTE | 2024-12-25 01:09 | Magnetic Resonance Report ---
Exam(s): MRI L SPINE Without Contrast EXAM: MR Lumbar Spine Without Intravenous Contrast CLINICAL HISTORY: Reason for exam: pain, ambulatory dysfunction. TECHNIQUE: Magnetic resonance images of the lumbar spine without intravenous contrast in multiple planes. COMPARISON: Prior CT scan of the lumbar spine from December 24, 2024. FINDINGS: Vertebrae: There are 5 lumbar type vertebral bodies with a mild generalized curve to the right and straightening the normal lumbar lordosis. There is normal vertebral body height and alignment. The bone marrow signal is heterogeneous with reactive endplate changes. No acute fracture. Spinal cord: The conus is normal size, shape and signal characteristics, terminating at T12-L1. Soft tissues: Advanced atrophy of the ileus psoas, paraspinous intraspinous musculature. The aorta and IVC flow voids are intact. The visualized kidneys are unremarkable. DISCS/SPINAL CANAL/NEURAL FORAMINA: L1-L2: The intervertebral disc is normal. There is mild facet arthropathy with mild synovitis. L2-L3: There is mild disc degeneration with annular disc bulge causing mild subarticular recess stenosis. There is minimal to mild facet arthropathy with mild synovitis. L3-L4: There is mild disc degeneration with annular disc bulge causing a mild right subarticular recess stenosis with disc extending into the neural foramina without evidence of impingement or significant stenosis. There is minimal facet joint arthropathy with mild synovitis. L4-L5: Moderate disc degeneration with annular disc bulge asymmetric to the right causing a mild subarticular recess stenosis with disc extending to the neural foramina without evidence for impingement or significant stenosis. There is mild facet arthropathy with mild synovitis and small joint effusions. L5-S1: There is mild disc degeneration with annular disc bulge flattening the ventral thecal sac. There is mild facet arthropathy with mild synovitis. IMPRESSION: 1. Moderate disc degeneration at L4-5, mild disc degeneration at L2-3, L3-4 and L4-5 with annular disc bulging flattening the ventral thecal sac causing mild subarticular recess stenosis at L2-3, L3-4 and L4-5 without evidence of neural impingement. 2. There is no spinal canal stenosis. 3. There is no significant neuroforaminal stenosis. 4. There is minimal to mild facet arthropathy with mild synovitis and small joint effusions at L4-5. 5. No evidence of fracture, infection, tumor or arachnoiditis. Electronically signed by: Marsha Rubi MD 12/25/24 01:08 AM
[2024-12-25] MEDS: LEVOTHYROXINE SODIUM 100 MCG TABLET PO SCH (05:44)
[2024-12-25 07:15] VITALS: BP 125/80; RESP 15; O2SAT 99
--- NOTE | 2024-12-25 08:32 | Orthopedic Progress Note ---
Date of Service December 25, 2024 Assessment & Plan (1) Acute lumbar back pain: I did review the patient's MRI in detail. No significant neuroforaminal or central canal stenosis. She does not have any weakness on exam. She has low back pain that has been improving since yesterday with the pain medication that she has been given in the hospital. -Continue pain control per hospitalist team -Please work with PT/OT for mobilization -No urgent surgical intervention indicated at this time. -Can follow-up with Dr. Kasper with [facility] in 2 to 3 weeks if her symptoms do not resolve. Subjective Patient is a 59-year-old female who reports the emergency department yesterday on 12/24/2024 for acute low back pain and thoracic pain. Orthopedics was consulted due to her intractable low back pain. She was unable to stand upright since she had a popping sensation in her lower back when she was cleaning her bathtub yesterday. She was admitted to the hospital for pain control and for ambulatory dysfunction. She was seen by one of our orthopedic providers ye sterday. An MRI of the lumbar spine has been ordered. She is not experiencing any acute neurological deficits, bowel or bladder services or constitutional symptoms. I am here today to go over her MRI and to discuss treatment options. Review of Systems All systems reviewed & are unremarkable except as noted in HPI & below. Physical Exam General: Alert and oriented. In no acute distress. At my visit today, she has 5 out of 5 strength bilaterally with no deficits. Does experience back dis comfort when she is sitting for extended periods of time. The patient did transfer from a sitting to a standing position independently with the use of a walker. She did take a few steps over to the computer where I reviewed her MRI. She was able to stand for about 5+ minutes. She was able to sit back down independently. Did have some discomfort doing so, however had no dysfunction or deficits. Sensation intact bilateral lower extremities. Results & Data Results & Data Laboratory Results . Diagnostic Findings MRI of the lumbar spine without contrast on 12/24/2024: I did review this MRI in detail with the patient in her hospital room today. No evidence of fractures or infections. Does have some changes at L4-5, however no significant or severe spinal stenosis. IMPRESSION: 1. Moderate disc degeneration at L4-5, mild disc degeneration at L2-3, L3-4 and L4-5 with annular disc bulging flattening the ventral thecal sac causing mild subarticular recess stenosis at L2-3, L3-4 and L4-5 without evidence of neural impingement. 2. There is no spinal canal stenosis. 3. There is no significant neuroforaminal stenosis. 4. There is minimal to mild facet arthropathy with mild synovitis and small joint effusions at L4-5. 5. No evidence of fracture, infection, tumor or arachnoiditis. PG Care Time/CCT Total # of Minutes Spent Total Time Spent with Patient: Total time spent is greater than 50% in coordination of care (as documented) at patient's floor/unit and/or counseling patient: Supervising Physician Co-Signing Physician Notes Discussed findings, imaging and plan with Kala Mota PA-C, agree with above. Coding Level of Care Code 65264 SUB INP/OBS CARE MIN Diagnoses Acute lumbar back pain M54.50
[2024-12-25] MEDS: LIDOCAINE 5% 1 PATCH TD SCH (08:52)
[2024-12-25] MEDS: LOSARTAN POTASSIUM 50 MG TAB PO SCH (08:53)
[2024-12-25 10:16] LABS: Hematocrit (blood only) 40.5 % (37.0-47.0); Hemoglobin 13.6 g/dl (12.0-16.0); Mean Corpuscular Hemoglobin 28.4 pg (25.0-34.0); Mean Corpuscular Hgb Conc 33.6 g/dL (32.0-36.0); Mean Corpuscular Volume 84.6 fL (80.0-100.0); Mean Platelet Volume 10.5 fL (9.4-12.4); Platelet Count 281 K/uL (130-400); RDW Coefficient of Variation 12.6 % (11.5-14.5); RDW Standard Deviation 38.6 fL (36.4-46.3); Red Blood Count 4.79 M/uL (4.20-5.40); White Blood Count 9.75 K/ul (4.8-10.8)
[2024-12-25 10:28] LABS: BUN Creatinine Ratio 23.5 (10-20); Calcium 7.9 mg/dl (8.6-10.3); Creatinine Clr Calc Pharmacy 77.2 ml/min; Magnesium 2.2 mg/dl (1.7-2.4); Phosphorus 3.4 mg/dl (2.5-4.9); Potassium 3.2 mmol/L (3.5-5.1)
[2024-12-25 10:43] LABS: Thyroid Stimulating Hormone 1.043 uIu/ml (0.300-4.500)
--- NOTE | 2024-12-25 12:54 | Hospitalist Progress Note ---
Date of Service December 25, 2024 Assessment & Plan (1) Ambulatory dysfunction: (2) Acute on chronic low back pain: Plan: Kinza Patterson is a 59y/o F with PMHx significant for HTN, palpitations 2/2 sensed SVT/PVCs, borderline prolonged QT, postsurgical hypothyroidism s/p total thyroidectomy 2/2 multinodular goiter, lumbar DDD, chronic low back pain, cervical disc herniation and allergic rhinitis who presented to the ED with ambulatory dysfunction 2/2 acute on chronic low back pain. Acute on chronic lower back pain Likely due to disc protrusion/degenerative disease Ambulatory dysfunction secondary to above --MRI Lumbar Spine: Moderate disc degeneration at L4-5, mild disc degeneration at L2-3, L3-4 and L4-5 with annular disc bulging flattening the ventral thecal sac causing mild subarticular recess stenosis at L2-3, L3-4 and L4-5 without evidence of neural impingement. There is no spinal canal stenosis. There is no significant neuroforaminal stenosis. There is minimal to mild facet arthropathy with mild synovitis and small joint effusions at L4-5. No evidence of fracture, infection, tumor or arachnoiditis. -- Pain control PT OT Fall precautions Appreciate orthopedic spine input Needs follow-up with Dr. Kasper with [facility] in 2 to 3 weeks on discharge (3) Hypertension: Plan: Continue losartan Monitor (4) Prolonged QT interval: Plan: H/o borderline prolonged QT interval per outpatient records. (5) Postsurgical hypothyroidism: Plan: Postsurgical hypothyroidism s/p total thyroidectomy 2/2 multinodular goiter. Normal TSH Continue levothyroxine. DVT Prophylaxis: SCDs/TEDs Code Status: FULL CODE Admission and Anticipated Discharge Date Admission Date: December 24, 2024 Subjective Patient is seen and examined at bedside Back pain is controlled Ambulated in hallway today Did well with physical therapy No new complaints Denies any chest pain, dyspnea, nausea, vomiting, abdominal pain Plan to be discharged home today Review of Systems Review of Systems: All systems reviewed & are unremarkable except as noted in Subjective Physical Exam Physical Exam: Physical Exam: Vitals signs as noted above General Appearance: Obese, no apparent distress Head: normocephalic, Atraumatic Eyes: normal inspection, EOMI Neck: supple, Trachea midline Respiratory/Chest: Normal breath sounds, CTA, No accessory muscle use Cardiovascular: S1, S2, No murmur Abdomen/GI:Soft, Non tender, Bowel sounds present Extremities/Musculoskeletal:normal inspection, no edema, lower back pain with ROM, lower background check coordinator, sensation intact Neurologic/Psych:AAOX3, grossly no focal neurological deficits Skin: normal color, warm Results & Data Results & Data Vital Signs (Past 12 Hours) Vital Signs Temp Pulse Resp BP Pulse Ox O2 Del Method 12/25/24 07:12 36.5 C 69 15 125/80 99 Room Air Laboratory Results Short CBC 12/25/24 Range/Units 09:23 WBC 9.75 (4.8-10.8) K/ul Hgb 13.6 (12.0-16.0) g/dl Hct 40.5 (37.0-47.0) % Plt Count 281 (130-400) K/uL BMP 12/25/24 09:23 Sodium 139 Potassium 3.2 L Chloride 104 Carbon Dioxide 25 BUN 20 Creatinine 0.85 Glucose 142 H Calcium 7.9 L (3) Hypertension Hypertension type: unspecified Qualified Code(s): I10 - Essential (primary) hypertension
--- NOTE | 2024-12-25 13:27 | Discharge Summary ---
Date of Service December 25, 2024 Admission HPI Per Admitting Provider Kinza Patterson is a 59y/o F with PMHx significant for HTN, palpitations 2/2 sensed SVT/PVCs, borderline prolonged QT, postsurgical hypothyroidism s/p total thyroidectomy 2/2 multinodular goiter, lumbar DDD, chronic low back pain, cervical disc herniation and allergic rhinitis who presented to the ED with ambulatory dysfunction 2/2 acute on chronic low back pain. History obtained from the patient, at bedside and associated chart review. Patient was bending over cleaning her bathtub yesterday morning when she experienced a popping sensation in her lower thoracic back region. Since then patient has been unable to stand upright. Took 600mg ibuprofen last evening which had little to no effect. States she has experienced a previous lumbar disc bulge and deals with chronic low back pain, however she has never required back surgery before. Denies any numbness or tingling in her BLE. No loss of bowel or bladder control. No numbness or tingling in the groin. Noted pain whilst lying on her right side in bed. ED labs reviewed and unremarkable. Thoracic spine XR unremarkable. Lumbar spine XR notes unilateral beheaded Martiniquais dog sign seen at L5-S1, suggestive of unilateral pars interarticularis defect. Relatively hypertensive in ED however suspect 2/2 pain and patient did not take her losartan this morning. VS otherwise stable. Did take her levothyroxine this morning. Admission Exam Per Admitting Provider General: WD/WN, vitals as above, NAD, laying down in bed, pleasant, conversing appropriately. A+Ox3. at bedside. HEENT: Normocephalic, atraumatic. Conjunctivae normal, anicteric sclerae. External ear and nose normal, oropharynx normal. Respiratory: Normal respiratory effort, lungs clear to auscultation, no wheeze/rales/rhonchi. No accessory muscle use. Cardiovascular: Regular rate, regular rhythm, normal peripheral pulses, no BLE edema. Vessels: No JVD. Abdomen/GI: Normal bowel sounds, soft, nondistended, nontender to palpation in all quadrants. Extremities/Musculoskeletal: 5/5 strength in BLE. + SLR on R. TTP in lower thoracic region. BLE sensation intact. Neurologic: No overt focal deficits, CN's II-XI not formally tested but appear grossly intact bilaterally. Principal Diagnosis Lower back pain Ambulatory dysfunction Degenerative disc disease Discharge Data Allergies Allergy/AdvReac Type Severity Reaction Status Date / Time BANDAID Allergy Intermediate BLISTERS Uncoded 04/17/21 23:59 AND "DE JESUS" SKIN Consultations 12/24/24 08:17 ED Decision to Admit Stat 12/24/24 08:18 Consult Orthopedic Spine Surgery Stat 12/24/24 15:54 Consult Pain Management Routine Procedures Performed Laboratory Results WBC 9.75 K/ul (4.8-10.8) 12/25/24 09:23 RBC 4.79 M/uL (4.20-5.40) 12/25/24 09:23 Hgb 13.6 g/dl (12.0-16.0) 12/25/24 09:23 Hct 40.5 % (37.0-47.0) 12/25/24 09:23 MCV 84.6 fL (80.0-100.0) 12/25/24 09:23 MCH 28.4 pg (25.0-34.0) 12/25/24 09:23 MCHC 33.6 g/dL (32.0-36.0) 12/25/24 09:23 RDW Std Deviation 38.6 fL (36.4-46.3) 12/25/24 09:23 RDW Coeff of Estrellita 12.6 % (11.5-14.5) 12/25/24 09:23 Plt Count 281 K/uL (130-400) 12/25/24 09:23 MPV 10.5 fL (9.4-12.4) 12/25/24 09:23 Immature Gran % (Auto) 0.8 % 12/24/24 08:35 Neut % (Auto) 82.5 % 12/24/24 08:35 Lymph % (Auto) 13.2 % 12/24/24 08:35 Hoke % (Auto) 2.0 % 12/24/24 08:35 Eos % (Auto) 1.0 % 12/24/24 08:35 Baso % (Auto) 0.5 % 12/24/24 08:35 Neut # (Auto) 5.05 K/uL (1.40-6.50) 12/24/24 08:35 Lymph # (Auto) 0.81 K/uL (1.20-3.40) L 12/24/24 08:35 Hoke # (Auto) 0.12 K/uL (0.11-0.59) 12/24/24 08:35 Eos # (Auto) 0.06 K/uL (0.00-0.50) 12/24/24 08:35 Baso # (Auto) 0.03 K/uL (0.00-0.20) 12/24/24 08:35 Immature Gran # (Auto) 0.05 K/uL (0.01-0.20) 12/24/24 08:35 Sodium 139 mmol/L (136-145) 12/25/24 09:23 Potassium 3.2 mmol/L (3.5-5.1) L 12/25/24 09:23 Chloride 104 mmol/L (98-107) 12/25/24 09:23 Carbon Dioxide 25 mmol/L (21-32) 12/25/24 09:23 Anion Gap 10 (3-11) 12/25/24 09:23 BUN 20 mg/dl (6-23) 12/25/24 09:23 Creatinine 0.85 mg/dl (0.6-1.2) 12/25/24 09:23 Est Cr Clr Drug Dosing 77.2 ml/min 12/25/24 09:23 eGFR 79.36 12/25/24 09:23 BUN/Creatinine Ratio 23.5 (10-20) H 12/25/24 09:23 Glucose 142 mg/dl (70-99(Fasting)) H 12/25/24 09:23 Calcium 7.9 mg/dl (8.6-10.3) L 12/25/24 09:23 Phosphorus 3.4 mg/dl (2.5-4.9) 12/25/24 09:23 Magnesium 2.2 mg/dl (1.7-2.4) 12/25/24 09:23 Total Bilirubin 0.9 mg/dl (0.2-1.0) 12/24/24 08:35 AST 19 U/L (13-39) 12/24/24 08:35 ALT 18 U/L (7-52) 12/24/24 08:35 Alkaline Phosphatase 94 U/L (34-104) 12/24/24 08:35 Total Protein 7.4 gm/dl (6.0-8.3) 12/24/24 08:35 Albumin 4.4 gm/dl (3.4-5.0) 12/24/24 08:35 Globulin 3.0 gm/dl (2.5-4.0) 12/24/24 08:35 Albumin/Globulin Ratio 1.5 (0.9-2) 12/24/24 08:35 TSH 1.043 uIu/ml (0.300-4.500) 12/25/24 09:23 Impressions Lumbar Spine X-Ray 12/24/24 05:29 EXAM: XR lumbar spine min 4V routine CLINICAL HISTORY: pain TECHNIQUE: Radiograph of lumber spine was acquired. COMPARISON: No FINDINGS: Unilateral beheaded kazakh dog sign seen at L5-S1 with no anterolisthesis at present scan. Vertebral bodies are normal in height. No acute fracture. Alignment is maintained. Intervertebral disc spaces are preserved. No lytic or blastic lesions identified. Bony spinal canal is maintained. The soft tissues are grossly unremarkable. IMPRESSION: 1. Unilateral beheaded kazakh dog sign seen at L5-S1, suggestive of unilateral pars interarticularis defect. 2. No anterolisthesis at present scan. Electronically signed by Jonathan Walker 12-24-2024 07:22 AM Thoracic Spine X-Ray 12/24/24 05:29 EXAM: XR thoracic spine 3V routine CLINICAL HISTORY: pain TECHNIQUE: Radiograph of thoracic spine was acquired. COMPARISON: No FINDINGS: Thoracic vertebral bodies are normal in height and alignment. Intervertebral disc spaces are normal. No evidence of listhesis. No abnormal pre and paravertebral soft tissue shadow seen. Visualized lung hi are clear. IMPRESSION: 1. Unremarkable study. Electronically signed by Jonathan Walker 12-24-2024 07:[address] 12/24/24 08:14 CT lumbar spine wo con CLINICAL HISTORY: pain COMPARISON STUDY: Radiographs same date TECHNIQUE: Helical axial CT of the lumbar spine was performed without intravenous contrast enhancement. Sagittal and coronal reconstructions were done. Total exam DLP 2232.83mGy*cm FINDINGS: There is no evidence of acute fracture or manic malalignment. There is no L5 pars defect identified. T12-L1 level demonstrate degenerative disc disease with slight endplate irregularity and small Schmorl's nodes. There is no significant neural compromise. L1-L2 level demonstrates small Schmorl's nodes and no additional abnormalities. L2-L3 level demonstrates a mild annulus bulge with no significant neural compromise. L3-L4 level demonstrates a mild annulus bulge and mild facet arthropathy. There is no significant neural compromise. L4-L5 level demonstrates a pronounced annulus bulge with slight right sided prominence. The central canal is at the lower limit of normal as a result of the disc protrusion. There is bilateral lateral recess and foraminal stenosis mild on the left and [id number] on the right. Mild hypertrophic facet arthropathy is present. L5-S1 level demonstrates a small central subligamentous disc protrusion that touches but does not displace the S1 nerve roots as they enter the lateral recesses. Moderate facet arthrosis is present at L5-S1. IMPRESSION: No evidence of acute fracture or traumatic malalignment. Disc protrusions at L4-5 and L5-S1 as described in the body of the report. ACT 112: Negative or not required by law. Electronically signed by: Esther Hicks M.D. 12/24/2024 9:[address] 12/24/24 08:14 CT OF THE THORACIC SPINE CLINICAL HISTORY: Back pain. COMPARISON STUDY: Thoracic spine radiographs performed earlier today. TECHNIQUE: Helical axial images of the thoracic spine were obtained. Sagittal and coronal reconstructions were viewed. Automated exposure control was utilized for the study. A dose lowering technique was utilized adhering to the principles of ALARA. FINDINGS: Alignment of the thoracic spine is anatomic. Vertebral body heights are maintained. There are no thoracic spine fractures. No osseous lesions are present. There is minimal disc space narrowing and osteophytosis within several levels of the thoracic spine. There is minimal facet arthrosis. Although suboptimally assessed by CT, there is no evidence for severe central canal and neural foraminal stenosis. IMPRESSION: 1. No acute thoracic spine fracture or subluxation. 2. Minimal degenerative changes within the thoracic spine. ACT 112: Negative or not required by law. Electronically signed by: Bruno Bee M.D. 12/24/2024 9:00 AM Lumbar Spine MRI 12/24/24 09:08 Exam(s): MRI L SPINE Without Contrast EXAM: MR Lumbar Spine Without Intravenous Contrast CLINICAL HISTORY: Reason for exam: pain, ambulatory dysfunction. TECHNIQUE: Magnetic resonance images of the lumbar spine without intravenous contrast in multiple planes. COMPARISON: Prior CT scan of the lumbar spine from December 24, 2024. FINDINGS: Vertebrae: There are 5 lumbar type vertebral bodies with a mild generalized curve to the right and straightening the normal lumbar lordosis. There is normal vertebral body height and alignment. The bone marrow signal is heterogeneous with reactive endplate changes. No acute fracture. Spinal cord: The conus is normal size, shape and signal characteristics, terminating at T12-L1. Soft tissues: Advanced atrophy of the ileus psoas, paraspinous intraspinous musculature. The aorta and IVC flow voids are intact. The visualized kidneys are unremarkable. DISCS/SPINAL CANAL/NEURAL FORAMINA: L1-L2: The intervertebral disc is normal. There is mild facet arthropathy with mild synovitis. L2-L3: There is mild disc degeneration with annular disc bulge causing mild subarticular recess stenosis. There is minimal to mild facet arthropathy with mild synovitis. L3-L4: There is mild disc degeneration with annular disc bulge causing a mild right subarticular recess stenosis with disc extending into the neural foramina without evidence of impingement or significant stenosis. There is minimal facet joint arthropathy with mild synovitis. L4-L5: Moderate disc degeneration with annular disc bulge asymmetric to the right causing a mild subarticular recess stenosis with disc extending to the neural foramina without evidence for impingement or significant stenosis. There is mild facet arthropathy with mild synovitis and small joint effusions. L5-S1: There is mild disc degeneration with annular disc bulge flattening the ventral thecal sac. There is mild facet arthropathy with mild synovitis. IMPRESSION: 1. Moderate disc degeneration at L4-5, mild disc degeneration at L2-3, L3-4 and L4-5 with annular disc bulging flattening the ventral thecal sac causing mild subarticular recess stenosis at L2-3, L3-4 and L4-5 without evidence of neural impingement. 2. There is no spinal canal stenosis. 3. There is no significant neuroforaminal stenosis. 4. There is minimal to mild facet arthropathy with mild synovitis and small joint effusions at L4-5. 5. No evidence of fracture, infection, tumor or arachnoiditis. Electronically signed by: Marsha Rubi MD 12/25/24 01:08 AM Ordered Studies 12/24/24 08:14 CT lumbar spine wo con Stat CT thoracic spine wo con Stat 12/24/24 09:08 MR lumbar spine wo con Urgent Hospital Course (1) Ambulatory dysfunction: (2) Acute on chronic low back pain: Kinza Patterson is a 59y/o F with PMHx significant for HTN, palpitations 2/2 sensed SVT/PVCs, borderline prolonged QT, postsurgical hypothyroidism s/p total thyroidectomy 2/2 multinodular goiter, lumbar DDD, chronic low back pain, cervical disc herniation and allergic rhinitis who presented to the ED with ambulatory dysfunction 2/2 acute on chronic low back pain. Acute on chronic lower back pain Likely due to disc protrusion/degenerative disease Ambulatory dysfunction secondary to above --MRI Lumbar Spine: Moderate disc degeneration at L4-5, mild disc degeneration at L2-3, L3-4 and L4-5 with annular disc bulging flattening the ventral thecal sac causing mild subarticular recess stenosis at L2-3, L3-4 and L4-5 without evidence of neural impingement. There is no spinal canal stenosis. There is no significant neuroforaminal stenosis. There is minimal to mild facet arthropathy with mild synovitis and small joint effusions at L4-5. No evidence of fracture, infection, tumor or arachnoiditis. -- Pain control PT OT Fall precautions Appreciate orthopedic spine input Needs follow-up with Dr. Kasper with [facility] in 2 to 3 weeks on discharge (3) Hypertension: Continue losartan Monitor (4) Prolonged QT interval: H/o borderline prolonged QT interval per outpatient records. (5) Postsurgical hypothyroidism: Postsurgical hypothyroidism s/p total thyroidectomy 2/2 multinodular goiter. Normal TSH Continue levothyroxine. DVT Prophylaxis: SCDs/TEDs Code Status: FULL CODE Total Time Total Time Spent Total Time Spent (In Minutes): 45 minutes Discharge Plan Discharge Items Patient Disposition: Home - Self-Care Reason For Visit: AMBULATORY DYSFUNCTION 2/2 LOW BACK PAIN Discharge Diagnosis: Lower back pain Ambulatory dysfunction Degenerative disc disease Activity: Per Instructions section Exercise/Sports: Gradually increase as tolerated Non-emergency contact: Primary Care Provider and Surgeon Call non-emergency contact if: you have any medication questions, your symptoms worsen, your pain is concerning for you and you have a fever Follow-up/Referrals: Atif Lubin MD [Primary Care Provider] - (Date & Time 12/31/2024 9:40 AM Provider: Landry Thrasher MD Family Practice [facility] ) Diet: Heart Healthy Addtl Attending Provider Instructions: Follow-up with your primary care physician on 12/31/2024 9:40 AM Follow-up with your orthopedic surgeon Dr. Kasper in 2 to 3 weeks Seek immediate medical attention if your symptoms reoccur or worsen Please take all medications as instructed on discharge list below. Please call if you have any questions or problems. You can reach a [facility] hospitalist on duty at [facility] 24 hours a day by calling [phone] Pending Studies at Discharge: No Stand-Alone Forms: My [facility], Work/School Release, Smoking Cessation Medications and DC Order Prescriptions: New baclofen 10 mg Tablet 10 mg PO BID PRN (Reason: muscle spasm) Qty: 30 0RF oxycodone-acetaminophen [Percocet] 5-325 mg Tablet 1 tab PO Q8H PRN (Reason: pain) Qty: 15 0RF lidocaine 5 % Adhesive Patch,Medicated 1 patch transdermal QAM Qty: 0 0RF Continued multivitamin Tablet 1 tab PO DAILY levothyroxine [Synthroid] 100 mcg tablet 100 mcg PO DAILY losartan 50 mg tablet 50 mg PO DAILY Discharge Orders: Discharge Order (Routine); Ordered 12/25/24 Ordered By: Beto Jiang Admission Data Admit Date/Time: 12/24/24 08:37 Attending Provider: Beto Jiang Admit Provider: Beto Jiang Primary Care Provider: Atif Lubin Other Providers: Beto Jiang; Yasir Dexter; David Lang; Chino Ramires; Kala Laguna; Anthony Canchola; Souleymane Kasper; Aurea Hylton; [facility],Home Healthcare
[2024-12-25] MEDS ORDERED: methylPREDNISolone 4 MG TAB PO SCH (14:00)
[2024-12-25] MEDS ORDERED: methylPREDNISolone 4 MG TAB, 6 DAY TAPER PO SCH (14:00)
--- NOTE | 2024-12-25 14:00 | Pain Management Consultation ---
Date of Consultation December 25, 2024 Assessment & Plan (1) Acute on chronic low back pain: (2) Lumbar degenerative disc disease: Disc-related pain type: discogenic back pain only Qualified Code(s): M51.360 - Other intervertebral disc degeneration, lumbar region with discogenic back pain only Plan 1. Patient with acute on chronic axial low back pain and suspected myofascial etiology with known history of lumbar DDD but no evidence of any significant central canal or neuroforaminal stenosis-no current radicular pattern to her pain complaints. Patient appears to be improving with conservative management at this time. There is no role for interventional treatment at this time. 2. Recommend Medrol Dosepak. Side effects versus benefits discussed. Order placed 3. Recommended patient continue with baclofen 10 mg 3 times daily for myofascial spasm 4. Recommend PT evaluation and treatment 5. Patient may follow-up in outpatient pain clinic with any persistent/progressive complaints should she fail conservative management. Pain service will sign off on patient at this time. Thank you for allowing us to participate in the care of Mrs. Patterson. History of Present Illness Reason for Consultation: Intractable low back pain Requesting Physician: Beto Jiang MD Attending Physician: Beto Jiang MD History of Present Illness Mrs. Patterson is a 59-year-old white female who was admitted with acute on chronic low back pain. Patient has past medical history significant for hypertension, palpitations, borderline prolonged QT, postsurgical hypothyroidism status post total thyroidectomy secondary to multinodular goiter, lumbar DDD, chronic low back pain, cervical disc herniation and allergic rhinitis. She reported onset of pain approximately 3 days ago which occurred while she was bending over scrubbing her bathtub. She described the pain as sharp, spasming and throbbing in characteristic aggravated with any movement. This led to emergent evaluation on 12/24/2024. The patient was admitted due to the pain and underwent updated imaging which failed to reveal any acute lumbar disc herniation. Her current pain is 100% axial without a radicular component. She has previously experienced radicular pattern pain most recently 2 years ago which resolved through physical therapy. Patient denies any bowel/bladder incontinence or saddle anesthesia. Her pain is reduced in frequency and severity since the time of admission. She is currently rating her pain a 2/10 at its best and 6/10 at its worst. Her pain remains aggravated with movement. She has been ambulating somewhat in the halls and did work with physical therapy earlier this morning. There is plan for outpatient PT per her report. She has previously found benefit from oral steroids. Patient has no further constitutional complaints. Plan of care discussed with Dr. Aurea Hylton. Pain Assessment Full Body Front + Back: 2 1. Axial lumbar spine Pain scale - at its best (0-10): 2 Pain scale - at its worst (0-10): 6 Allergies Allergy/AdvReac Type Severity Reaction Status Date / Time BANDAID Allergy Intermediate BLISTERS Uncoded 04/17/21 23:59 AND "DE JESUS" SKIN Home Medications Medication Instructions Recorded Confirmed Type levothyroxine 100 mcg tablet 100 mcg PO DAILY 04/18/21 12/24/24 History (Synthroid) multivitamin 1 tab PO DAILY 04/18/21 12/24/24 History losartan 50 mg tablet 50 mg PO DAILY 12/24/24 12/24/24 History baclofen 10 mg tablet 10 mg PO BID PRN muscle spasm #30 12/25/24 Rx tabs lidocaine 5 % topical patch 1 patch transdermal QAM #0 ea 12/25/24 Rx oxycodone-acetaminophen 5 mg-325 1 tab PO Q8H PRN pain #15 tabs 12/25/24 Rx mg tablet (Percocet) Pain History Pain Intensity Pain scale - at its best (0-10): 2 Pain scale - at its worst (0-10): 6 Patient History Medical History No pertinent past medical history Surgical History History of thyroidectomy Social History Smoking Status: Never smoker Second Hand Exposure: No; Do You Dip or Chew Tobacco: No; Hx Alcohol Use: Yes Alcohol type: beer Hx Substance Use: No Preferred Language: Cambodian Communication Ability: Effective Biomedical Engineer Required: No Beliefs That Will Affect Care: None Current Living Situation: Spouse Feels Safe at Home: Yes Assistive Devices: None Physical Exam 2 Physical Exam: General: Patient sitting quietly in exam room in no acute distress. Speech and thought process appropriate. Mood and affect appropriate. Cognition intact. Head: Normocephalic and atraumatic. ENT: No evidence of nasal or oral mucosal lesions. Mucous membranes are moist. Eyes: Pupils equal round reactive to light. Abdomen: Soft and nondistended. No organomegaly. Bowel sounds active. Back/spine: Loss of lumbar lordosis. Lidoderm patch in place in the upper lumbar midline. She has no focal midline or facet joint tenderness. Minimally tender in the upper-mid lumbar paravertebral musculature. There is spasm noted but no definable myoneural trigger point. Facet load-bearing test with slight increase in paravertebral pain but no focal facet joint pain noted. No SI joint tenderness appreciated on provocative testing. Lower extremities: SLR with slight increase in axial pain on the right side. SLR negative on the left in the sitting position. Strength testing 5/5 with dorsiflexion, plantarflexion, hip flexion/extension and knee flexion/extension maneuvering. Sensation intact without deficit. Neurologic: Cranial nerves grossly intact. Ambulatory function not witnessed. Results (Pain Clinic) Diagnostic Review MRI Findings: [place], [place] [phone] Magnetic Resonance Report Patient: HOWARD PATTERSON Admit Date: 12/24/24 MR#: [id number] Address1: [address] [place] [address] Acct ID:[id number] Address2: Date: 1965 [facility] Zip: [place] [address] Age: 59 Location: 3W Sex: F Room/Bed: [facility] Att Phy: Beto Jiang MD Diagnosis: AMBULATORY DYSFUNCTION 2/2 LOW BACK PAIN [place] Phy: Atif Lubin MD Service Date: 12/24/24 [facility] Phy: Interpreting [facility]: [facility] Phy: Beto Jiang MD Ordering Phy: Chino Ramires PA-C cc: ~ Exam(s): MRI L SPINE Without Contrast EXAM: MR Lumbar Spine Without Intravenous Contrast CLINICAL HISTORY: Reason for exam: pain, ambulatory dysfunction. TECHNIQUE: Magnetic resonance images of the lumbar spine without intravenous contrast in multiple planes. COMPARISON: Prior CT scan of the lumbar spine from December 24, 2024. FINDINGS: Vertebrae: There are 5 lumbar type vertebral bodies with a mild generalized curve to the right and straightening the normal lumbar lordosis. There is normal vertebral body height and alignment. The bone marrow signal is heterogeneous with reactive endplate changes. No acute fracture. Spinal cord: The conus is normal size, shape and signal characteristics, terminating at T12-L1. Soft tissues: Advanced atrophy of the ileus psoas, paraspinous intraspinous musculature. The aorta and IVC flow voids are intact. The visualized kidneys are unremarkable. DISCS/SPINAL CANAL/NEURAL FORAMINA: L1-L2: The intervertebral disc is normal. There is mild facet arthropathy with mild synovitis. L2-L3: There is mild disc degeneration with annular disc bulge causing mild subarticular recess stenosis. There is minimal to mild facet arthropathy with mild synovitis. L3-L4: There is mild disc degeneration with annular disc bulge causing a mild right subarticular recess stenosis with disc extending into the neural foramina without evidence of impingement or significant stenosis. There is minimal facet joint arthropathy with mild synovitis. L4-L5: Moderate disc degeneration with annular disc bulge asymmetric to the right causing a mild subarticular recess stenosis with disc extending to the neural foramina without evidence for impingement or significant stenosis. There is mild facet arthropathy with mild synovitis and small joint effusions. L5-S1: There is mild disc degeneration with annular disc bulge flattening the ventral thecal sac. There is mild facet arthropathy with mild synovitis. IMPRESSION: 1. Moderate disc degeneration at L4-5, mild disc degeneration at L2-3, L3-4 and L4-5 with annular disc bulging flattening the ventral thecal sac causing mild subarticular recess stenosis at L2-3, L3-4 and L4-5 without evidence of neural impingement. 2. There is no spinal canal stenosis. 3. There is no significant neuroforaminal stenosis. 4. There is minimal to mild facet arthropathy with mild synovitis and small joint effusions at L4-5. 5. No evidence of fracture, infection, tumor or arachnoiditis. Electronically signed by: Marsha Rubi MD 12/25/24 01:08 AM Dictated: 12/25/24107 Transcribed: 12/25/24107 CT Findings: [facility], [place] [phone] CT Scan Report Patient: HOWARD PATTERSON Admit Date: 12/24/24 MR#: [id number] Address1: [address] Acct ID:[id number] Address2: Date: 1965 [facility] Zip: [place] [address] Age: 59 Location: ED Sex: F Room/Bed: Att Phy: Beto Jiang MD Diagnosis: BACK PAIN, BACK POPPED YESTERDAY WHILE CLEANING [place] Phy: Atif Lubin MD Service Date: 12/24/24 [facility] Phy: Interpreting Phy: Bruno Bee MDAdmit Phy: Ordering Phy: Jenny Patiño CRNP cc: ~ CT OF THE THORACIC SPINE CLINICAL HISTORY: Back pain. COMPARISON STUDY: Thoracic spine radiographs performed earlier today. TECHNIQUE: Helical axial images of the thoracic spine were obtained. Sagittal and coronal reconstructions were viewed. Automated exposure control was utilized for the study. A dose lowering technique was utilized adhering to the principles of ALARA. FINDINGS: Alignment of the thoracic spine is anatomic. Vertebral body heights are maintained. There are no thoracic spine fractures. No osseous lesions are present. There is minimal disc space narrowing and osteophytosis within several levels of the thoracic spine. There is minimal facet arthrosis. Although suboptimally assessed by CT, there is no evidence for severe central canal and neural foraminal stenosis. IMPRESSION: 1. No acute thoracic spine fracture or subluxation. 2. Minimal degenerative changes within the thoracic spine. ACT 112: Negative or not required by law. Electronically signed by: Bruno Bee M.D. 12/24/2024 9:00 AM Dictated: 12/24/24 0855 Transcribed: 12/24/24 0855 [facility] [place], [place] [phone] CT Scan Report Patient: HOWARD PATTERSON Admit Date: 12/24/24 MR#: [id number] Address1: [address] Acct ID:[id number] Address2: Date: 1965 [facility] Zip: [place] [address] Age: 59 Location: ED Sex: F Room/Bed: Att Phy: Beto Jiang MD Diagnosis: BACK PAIN, BACK POPPED YESTERDAY WHILE CLEANING [place] Phy: Atif Lubin MD Service Date: 12/24/24 [facility] Phy: Interpreting Phy: Esther Hicks MDAdmit Phy: Ordering Phy: Jenny Patiño CRNP cc: ~ CT lumbar spine wo con CLINICAL HISTORY: pain COMPARISON STUDY: Radiographs same date TECHNIQUE: Helical axial CT of the lumbar spine was performed without intravenous contrast enhancement. Sagittal and coronal reconstructions were done. Total exam DLP 2232.83mGy*cm FINDINGS: There is no evidence of acute fracture or manic malalignment. There is no L5 pars defect identified. T12-L1 level demonstrate degenerative disc disease with slight endplate irregularity and small Schmorl's nodes. There is no significant neural compromise. L1-L2 level demonstrates small Schmorl's nodes and no additional abnormalities. L2-L3 level demonstrates a mild annulus bulge with no significant neural compromise. L3-L4 level demonstrates a mild annulus bulge and mild facet arthropathy. There is no significant neural compromise. L4-L5 level demonstrates a pronounced annulus bulge with slight right sided prominence. The central canal is at the lower limit of normal as a result of the disc protrusion. There is bilateral lateral recess and foraminal stenosis mild on the left and [id number] on the right. Mild hypertrophic facet arthropathy is present. L5-S1 level demonstrates a small central subligamentous disc protrusion that touches but does not displace the S1 nerve roots as they enter the lateral recesses. Moderate facet arthrosis is present at L5-S1. IMPRESSION: No evidence of acute fracture or traumatic malalignment. Disc protrusions at L4-5 and L5-S1 as described in the body of the report. ACT 112: Negative or not required by law. Electronically signed by: Esther Hicks M.D. 12/24/2024 9:14 AM Dictated: 12/24/24902 Transcribed: 12/24/24902 Previous Records Review Previous Records: personally reviewed by
[2024-12-26] MEDS ORDERED: methylPREDNISolone 4 MG TAB PO SCH ×2 (07:00→21:00)
[2024-12-27] MEDS ORDERED: methylPREDNISolone 4 MG TAB PO SCH (07:00)
[2024-12-28] MEDS ORDERED: methylPREDNISolone 4 MG TAB PO SCH (07:00)
[2024-12-29] MEDS ORDERED: methylPREDNISolone 4 MG TAB PO SCH (07:00)
[2024-12-30] MEDS ORDERED: methylPREDNISolone 4 MG TAB PO SCH (07:00)
== END 2024-12-25 14:40 | disposition home or self-care (01) ==
LOC: SUATTDRO → ED 04:56 → EDINP 04:56 → 3W 16:54